=== PATIENT | female | born 2000 | race Caucasian/White ===

== ENCOUNTER → 2022-12-29 | Outpatient (CLI) | payer OTHER ==
[2022-12-29 14:37] VITALS: BP 126/70
--- NOTE | 2022-12-29 16:01 | Cardiology Stress Test Report ---
Stress Test Report Date of Procedure/Referring: Date of Procedure: Dec 29, 2022 PCP Admitting Physician Admitting Physician: Attending Physician: Janna Campbell Indications: NSVT Baseline Heart Rate: 82 Baseline Blood Pressure: Blood Pressure Systolic: 126 Blood Pressure Diastolic: 70 Baseline EKG: Baseline EKG: NSR Summary/Conclusion: Summary: In summary, the patient started exercising with a baseline heart rate, blood pressure and EKG mentioned above Patient was able to exercise for a total of 5 minutes on Darrick protocol, METs 7 Maximum heart rate 177 Maximum blood pressure 150/62 Stress EKG, Minimal nondiagnostic changes Recovery EKG , Return to baseline Conclusion: 1. Good exercise tolerance for a total of 5 minutes on Darrick protocol, 7 METs, achieving 89 percent of maximum expected heart rate 2. Minimal nondiagnostic EKG changes with exercise returned to baseline during recovery 3. No arrhythmia was noted Copy Copies To 1: [facility]/NOHELIA RODRIGUEZ MD Dec 29, 2022 16:01
== END ==
LOC: CARD 14:45
PROVIDERS: ATTEND Physician Assistant
DX: I47.29 Other ventricular tachycardia (principal)
CPT/HCPCS: 93017